=== PATIENT | female | born 1985 | race Caucasian/White ===

== ENCOUNTER 2023-04-06 18:07 | Emergency (ER) | payer OTHER ==
[~2023-04-06] VITALS: Ht 175.3 cm; Wt 136.1 kg
[2023-04-06 18:18] VITALS: BP 119/87; PULSE 82; RESP 21; TEMP 98.5; O2SAT 98
[2023-04-06 19:11] LABS: FLU A ANTIGEN negative (NEGATIVE); FLU B ANTIGEN NEGATIVE (NEGATIVE)
[2023-04-06 19:30] VITALS: O2SAT 98
[2023-04-06] MEDS ORDERED: KETOROLAC 60 MG/2 ML VIAL IM ONE (21:00)
[2023-04-06] MEDS ORDERED: IBUP-2213 PO (21:19)
[2023-04-06] MEDS ORDERED: PRED20TA5 PO (21:19)
== END 2023-04-06 21:26 | disposition home or self-care (01) ==
LOC: MED 18:07
DX: R05.9 Cough, unspecified (principal); R07.9 Chest pain, unspecified; R07.0 Pain in throat; Z20.822 Contact with and (suspected) exposure to COVID-19; Z86.39 Personal history of other endocrine, nutritional and metabolic disease; Z98.890 Other specified postprocedural states
CPT/HCPCS: 71045; 81002; 81025; 87426; 87804; 96372; 99284; J1885